=== PATIENT | female | born 1955 | race Caucasian/White ===

== ENCOUNTER 2020-05-04 21:38 | Emergency (ER) | payer OTHER ==
[~2020-05-04] VITALS: Ht 162.6 cm; Wt 87.1 kg
[2020-05-04 21:48] VITALS: BP 142/75; Ht 162.6 cm; Wt 87.1 kg
== END 2020-05-04 23:16 | disposition home or self-care (01) ==
LOC: ED 21:38
DX: S29.012A Strain of muscle and tendon of back wall of thorax, initial encounter (principal); W18.30XA Fall on same level, unspecified, initial encounter; Y93.89 Activity, other specified; Y92.89 Other specified places as the place of occurrence of the external cause; Y99.8 Other external cause status
CPT/HCPCS: J1885